=== PATIENT | male | born 1950 | race Native Hawaiian/Other Pacific Islander ===

== ENCOUNTER 2020-01-27 20:36 | Emergency (ER) | payer OTHER ==
[~2020-01-27] VITALS: Ht 167.6 cm; Wt 71.8 kg
[2020-01-27 21:07] LABS: PLATELET COUNT 387 K/uL (142-355)
[2020-01-27 21:12] LABS: POTASSIUM 4.2 mmol/L (3.6-5.2)
[2020-01-27 23:23] VITALS: BP 116/68; TEMP 98.6
[2020-01-28] MEDS ORDERED: ASPIRIN DR81 MG PO (01:03)
[2020-01-28] MEDS ORDERED: DONEPEZIL HYDRO10 M1 PO (01:08)
[2020-01-28] MEDS ORDERED: KP FOLIC ACID1 MG PO (01:09)
[2020-01-28] MEDS ORDERED: HYDR200T3 PO (01:12)
[2020-01-28] MEDS ORDERED: PRINIVIL5 MG PO (01:13)
[2020-01-28] MEDS ORDERED: MEMA5TAB2 PO (01:14)
[2020-01-28] MEDS ORDERED: METHO2.5 PO (01:20)
[2020-01-28] MEDS ORDERED: METO25TA2 PO (01:22)
[2020-01-28] MEDS ORDERED: TIZA4TAB5 PO (01:24)
[2020-01-28] MEDS ORDERED: VITAMIN D34000 UNIT PO (01:27)
== END 2020-01-27 23:25 | disposition other institution (70) ==
LOC: ED 20:36
PROVIDERS: Family Medicine
DX: F41.8 Other specified anxiety disorders (principal); G30.8 Other Alzheimer's disease; F02.81 Dementia in other diseases classified elsewhere, unspecified severity, with behavioral disturbance; Z91.83 Wandering in diseases classified elsewhere; Z11.59 Encounter for screening for other viral diseases; Z04.6 Encounter for general psychiatric examination, requested by authority
CPT/HCPCS: 36415; 80053; 85027; 87635; 93005; 99283; J1644; U0003

== ENCOUNTER 2020-02-11 18:06 | Emergency (ER) | payer OTHER ==
[~2020-02-11] VITALS: Ht 167.6 cm; Wt 71.8 kg
[2020-02-11 18:06] VITALS: BP 124/60; TEMP 98.3
[~2020-02-11 18:06] MED LIST: ASPIRIN DR81 MG PO; CYAN10009 IM; DONEPEZIL HYDRO10 M1 PO; ESCI10TA PO; HYDR200T3 PO; KP FOLIC ACID1 MG PO; MEMA5TAB2 PO; METHO2.5 PO; METO25TA2 PO; OLANZAPINE5 MG PO; PRINIVIL5 MG PO; REMERON 15MG TAB PO; TIZA4TAB5 PO; VITAMIN D34000 UNIT PO
[2020-02-11 18:26] LABS: PLATELET COUNT 326 K/uL (142-355)
[2020-02-11 18:32] LABS: POTASSIUM 4.1 mmol/L (3.6-5.2)
[2020-02-12] MEDS ORDERED: TYLENOL325 MG PO (00:53)
[2020-02-12] MEDS ORDERED: CYAN10009 IM (00:59)
[2020-02-12] MEDS ORDERED: MILK OF MA400 MG/5 M PO (01:00)
[2020-02-12] MEDS ORDERED: MIRTAZAPINE7.5 MG PO (01:01)
[2020-02-12] MEDS ORDERED: D350 MCG PO (01:49)
[2020-02-12] MEDS ORDERED: OLANZAPINE5 M1 PO (02:06)
== END 2020-02-11 19:49 | disposition still patient (30) ==
LOC: ED 18:09
PROVIDERS: Emergency Medicine Emergency Medical Services
DX: F03.91 Unspecified dementia, unspecified severity, with behavioral disturbance (principal); Z11.59 Encounter for screening for other viral diseases; Z04.6 Encounter for general psychiatric examination, requested by authority
CPT/HCPCS: 36415; 80053; 85027; 87635; 93005; 99283; U0003